=== PATIENT | male | born 1985 | race Asian ===

== ENCOUNTER 2023-05-24 01:05 | Emergency (ER) | payer MEDICAID ==
[~2023-05-24] VITALS: Ht 172.7 cm; Wt 97.5 kg
[2023-05-24 01:07] VITALS: BP 103/67; PULSE 69; RESP 21; TEMP 97.2; O2SAT 98
[2023-05-24] MEDS ORDERED: WATER STERILE 10 ML MC ONE (01:13)
[2023-05-24 03:58] VITALS: BP 103/67; PULSE 70; RESP 21; TEMP 97.2; O2SAT 98
== END 2023-05-24 03:58 ==
LOC: MED 01:05
DX: K94.29 Other complications of gastrostomy (principal); E11.9 Type 2 diabetes mellitus without complications; Z79.899 Other long term (current) drug therapy; Z79.4 Long term (current) use of insulin
CPT/HCPCS: 43762; 74240; 99284; Q0092; Q9967